=== PATIENT | female | born 1985 | race Caucasian/White ===

== ENCOUNTER → 2018-05-16 | Outpatient (CLI) | payer MEDICAID ==
[~2018-05-16] MED LIST: CEPH500C PO
--- NOTE | 2018-05-16 12:29 | Diagnostic Imaging Report ---
INDICATION: survey. TECHNIQUE: Multiple Real-time grayscale images were obtained over the gravid uterus. COMPARISON: None. FINDINGS: There is a single live fetus in a cephalic presentation. The heart rate was recorded at 149 BPM. The placenta is anterior. The amniotic fluid volume is normal. The survey is somewhat limited due to patient body habitus. The bladder and stomach are unremarkable. There is a three-vessel cord with normal insertion. The kidneys are somewhat limited in evaluation. In addition, the brain, spine, and 4 chamber heart view are limited. The cervical length is approximately 4 cm. Biometrical measurements are as follows: Biparietal 4.98 cm, age 21 weeks 1 days. Head circumference 19.34 cm, age 21 weeks 5 days. Abdominal circumference 17.42 cm, age 22 weeks 3 days. Femur length 3.41 cm, age 20 weeks 6 days. Sonographic estimate age: 21 weeks 4 days. Sonographic estimated date of delivery: 09/22/18. Estimated Weight: 436 gm (+/- 64 gm). LMP percentile: 76%. heart rate: 149 beats per minute. number: 1 of 1. IMPRESSION: Single live IUP of 21 weeks 4 days gestational age. The estimated date of confinement sonographically is 09/22/2018. The survey is limited. Followup could be performed. Dictated by: Dictated on workstation # [id number]
== END ==
LOC: RAD 10:39
PROVIDERS: ATTEND Obstetrics & Gynecology
DX: Z36.89 Encounter for other specified antenatal screening (principal); Z3A.21 21 weeks gestation of pregnancy
CPT/HCPCS: 76805

== ENCOUNTER → 2018-07-09 | Outpatient (CLI) | payer MEDICAID ==
--- NOTE | 2018-07-09 11:04 | Diagnostic Imaging Report ---
INDICATION: Followup incomplete anatomical assessment from prior imaging. TECHNIQUE: Multiple, limited real-time grayscale images were obtained over the gravid uterus. COMPARISON: 05/16/2018 FINDINGS: Single viable intrauterine currently in cephalic presentation. Placenta anterior without evidence for previa. Normal amount of amniotic fluid appears to be present. Followup limited anatomical evaluation demonstrates visualization of the spine, four-chamber heart and kidneys to be unremarkable. The intracranial structures however remain incomplete and limited in evaluation. Maternal adnexa not imaged. Biometrical growth parameters not performed. heart rate: 132 beats per minute. number: One of one. IMPRESSION: 1. Limited followup obstetrical sonogram imaging demonstrates visualization of the spine, four-chamber heart and kidneys. However, the intracranial structures remain incomplete and limited in evaluation. Dictated by: Dictated on workstation # [id number]
== END ==
LOC: RAD 09:52
PROVIDERS: ATTEND Obstetrics & Gynecology
DX: Z36.89 Encounter for other specified antenatal screening (principal); Z3A.00 Weeks of gestation of pregnancy not specified
CPT/HCPCS: 76816

== ENCOUNTER 2018-09-01 05:54 | Inpatient (IN) | payer MEDICAID ==
[2018-09-01] VITALS (53 sets, daily range): BP systolic 98–134; BP diastolic 55–93
[~2018-09-01] VITALS: Ht 160 cm; Wt 120.7 kg
--- NOTE | 2018-09-01 05:55 | NUR ---
JUANITA PONCE presented to unit via wc from ED, accompanied by er staff and son , with c/o POSS WATER BROKE, ALEXIRACTIONS. JUANITA PONCE weighed, gowned, voided, and to bed. EFHM and TOCO applied, VS taken. JUANITA PONCE oriented to bed controls, call light, TV, heat, and A/C controls. Assessments per H.ROCAEL KEEN.
[2018-09-01] MEDS ORDERED: AMPICILLIN FOR IV USE 2,000 MG VIAL ONE (06:10)
[2018-09-01] MEDS ORDERED: D5 LR IV SOLUTION 1,000 ML IV ONE (06:11)
[2018-09-01] MEDS ORDERED: AMPICILLIN FOR IV USE 2,000 MG in WATER (STERILE) FOR INJECTION 14.8 ML IV SCH (06:20)
[2018-09-01] MEDS: D5 LR IV SOLUTION 1,000 ML IV SCH ×2 (06:20→14:43)
--- OUTSIDE RECORDS SUMMARY | 2018-09-01 06:31 | XMS REPORT | Continuity of Care Document ---
Author Author [facility] Organization [facility] Address Unknown Phone Unavailable Allergies Active Description Code Type Severity Reaction Onset Reported/Identified Relationship to Patient Clinical Status Yes No Known Drug Allergies [id number] Drug Allergy Unknown N/A 08/02/2014 Medications There is no data. Problems Date Dx Coded Attending Type Code Diagnosis Diagnosed By 08/02/2014 MIRIAM PAZ APRN Ot 882.1 OPN WOUND HAND-COMPLICAT 08/02/2014 MIRIAM PAZ APRN Ot E000.8 OTHER EXTERNAL CAUSE STATUS 08/02/2014 MIRIAM PAZ APRN Ot E920.8 ACC-CUTTING INSTRUM NEC 03/07/2016 LAVERN CORRIGAN, ABDULKADIR Garces Ot F17.210 NICOTINE DEPENDENCE, CIGARETTES, UNCOMPL 03/07/2016 LAVERN CORRIGAN, ABDULKADIR Garces Ot O03.9 COMPLETE OR UNSP SPONTANEOUS WI 03/07/2016 ABDULKADIR PUCKETT MD Ot O20.0 THREATENED 03/07/2016 LAVERN CORRIGAN, ABDULKADIR Garces Ot O36.0910 MATERNAL CARE FOR OTH RHESUS ISOIMMUN, F 03/07/2016 ABDULKADIR PUCKETT MD Ot Z3A.01 LESS THAN 8 WEEKS GESTATION OF 03/08/2016 ABDULKADIR PUCKETT MD Ot F17.210 NICOTINE DEPENDENCE, CIGARETTES, UNCOMPL 03/08/2016 ABDULKADIR PUCKETT MD Ot O03.9 COMPLETE OR UNSP SPONTANEOUS WI 03/08/2016 ABDULKADIR PUCKETT MD Ot O20.0 THREATENED 03/08/2016 ABDULKADIR PUCKETT MD Ot O36.0910 MATERNAL CARE FOR OTH RHESUS ISOIMMUN, F 03/08/2016 ABDULKADIR PUCKETT MD Ot Z3A.01 LESS THAN 8 WEEKS GESTATION OF 05/17/2018 NERI STACK DO Ot Z36.89 ENCOUNTER FOR OTHER SPECIFIED 05/17/2018 NERI STACK DO Ot Z3A.21 21 WEEKS GESTATION OF 07/11/2018 NERI STACK DO Ot Z36.89 ENCOUNTER FOR OTHER SPECIFIED 07/11/2018 NERI STACK DO Ot Z3A.00 WEEKS OF GESTATION OF NOT SPEC 07/25/2018 NERI STACK DO Ot Z36.89 ENCOUNTER FOR OTHER SPECIFIED 07/25/2018 STACK DONERI Ot Z3A.00 WEEKS OF GESTATION OF NOT SPEC 09/01/2018 SREEKANTH DONERI Ot Z36.89 ENCOUNTER FOR OTHER SPECIFIED 09/01/2018 SREEKANTH DONERI Ot Z3A.00 WEEKS OF GESTATION OF NOT SPEC Procedures There is no data. Results Test Result Range Complete urinalysis with reflex to culture - 03/07/16 14:38 Urine color determination YELLOW NRG Urine clarity determination CLEAR NRG Urine pH measurement by test strip 5 5-9 Specific gravity of urine by test strip 1.010 1.016- 1.022 Urine protein assay by test strip, semi-quantitative NEGATIVE NEGATIVE Urine glucose detection by automated test strip NEGATIVE NEGATIVE Erythrocytes detection in urine sediment by light microscopy 3+ NEGATIVE Urine ketones detection by automated test strip NEGATIVE NEGATIVE Urine nitrite detection by test strip NEGATIVE NEGATIVE Urine total bilirubin detection by test strip NEGATIVE NEGATIVE Urine urobilinogen measurement by automated test strip (mass/volume) NORMAL NORMAL Urine leukocyte esterase detection by dipstick NEGATIVE NEGATIVE Automated urine sediment erythrocyte count by microscopy (number/high power field) [HPF] NRG Automated urine sediment leukocyte count by microscopy (number/high power field ) NONE NRG Bacteria detection in urine sediment by light microscopy NEGATIVE NRG Squamous epithelial cells detection in urine sediment by light microscopy 2-5 NRG Crystals detection in urine sediment by light microscopy NONE NRG Casts detection in urine sediment by light microscopy NONE NRG Mucus detection in urine sediment by light microscopy NEGATIVE NRG Complete urinalysis with reflex to culture NO NRG Complete blood count (CBC) with automated white blood cell (WBC) differential - 03/07/16 15:06 Blood leukocytes automated count (number/volume) 6.8 10*3/uL 4.3-11.0 Blood erythrocytes automated count (number/volume) 5.10 10*6/uL 4.35-5.85 Venous blood hemoglobin measurement (mass/volume) 14.5 g/dL 11.5-16.0 Blood hematocrit (volume fraction) 44 % 35-52 Automated erythrocyte mean corpuscular volume 86 [foz_us] 80-99 Automated erythrocyte mean corpuscular hemoglobin (mass per erythrocyte) 28 pg 25-34 Automated erythrocyte mean corpuscular hemoglobin concentration measurement ( mass/volume) 33 g/dL 32-36 Automated erythrocyte distribution width ratio 13.5 % 10.0-14.5 Automated blood platelet count (count/volume) 250 10*3/uL 130-400 Automated blood platelet mean volume measurement 10.0 [foz_us] 7.4-10.4 Automated blood neutrophils/100 leukocytes 60 % 42-75 Automated blood lymphocytes/100 leukocytes 30 % 12-44 Blood monocytes/100 leukocytes 7 % 0-12 Automated blood eosinophils/100 leukocytes 2 % 0-10 Automated blood basophils/100 leukocytes 1 % 0-10 Blood neutrophils automated count (number/volume) 4.1 10*3 1.8-7.8 Blood lymphocytes automated count (number/volume) 2.0 10*3 1.0-4.0 Blood monocytes automated count (number/volume) 0.5 10*3 0.0-1.0 Automated eosinophil count 0.2 10*3/uL 0.0-0.3 Automated blood basophil count (count/volume) 0.1 10*3/uL 0.0-0.1 [facility] - 03/07/16 15:06 RH IMMUNE GLOBULIN [facility] PRSMD TRFSD 03/07/16 1805 NRG ABO+Rh group - 03/07/16 15:06 ABO+Rh group ON NRG [id number] - 03/07/16 15:06 [id number] 300ug NRG Lot number - 03/07/16 15:06 Lot number [id number] NRG cell screen - 03/07/16 15:06 cell screen 04/07/18 NRG Serum or plasma choriogonadotropin measurement (units/volume) - 03/07/16 15:06 Serum or plasma choriogonadotropin measurement (units/volume) 271 m[ iU]/mL <5 Encounters ACCT No. Visit Date/Time Discharge Status Pt. Type Provider Facility Loc./Unit Complaint [id number] 07/09/2018 09:52:00 07/09/2018 23:59:59 CLS Outpatient NERI STACK DO [facility] RAD EVALUATE ANATOMY NOT SEEN PRIOR [id number] 05/16/2018 10:39:00 05/16/2018 23:59:59 CLS Outpatient NERI STACK DO [facility] RAD 15 WEEKS GESTATION OF [id number] 03/07/2016 13:34:00 03/07/2016 18:17:00 DIS Emergency ABDULKADIR PUCKETT MD [facility] ER POSITIVE PREG TEST/ VAG BLEEDING [id number] 08/02/2014 17:13:00 08/02/2014 17:33:00 DIS Emergency MIRIAM PAZ APRN [facility] ER HOOK IN RIGHT HAND [id number] 09/01/2018 05:54:00 ACT Outpatient NERI STACK DO [facility] LDRP JORGE CONROY [id number] 08/02/2014 21:13:53 ACT Document Registration
--- OUTSIDE RECORDS SUMMARY | 2018-09-01 06:31 | XMS REPORT ---
Author JAREN [facility] eClinicalWorks Address Unknown Phone Unavailable Care Team Providers Care Freelance Photographer Name Role Phone JAREN COTTRELL CP Unavailable Allergies No Known Allergies Problems Problem Type Condition Code Onset Dates Condition Status Assessment Encounter for test, result unknown Z32.00 Active Medications No Known Medications Procedures Procedure Coding System Code Date VENIPUNCT, ROUTINE* CPT-4 60687 Mar 04, 2016 CHORIONIC GONADOTROPIN ASSAY CPT-4 34737 Mar 04, 2016 Results No Known Results Summary Purpose eClinicalWorks Submission
[2018-09-01 06:33] LABS: BASOPHILS % (AUTO) 0 % (0-10); EOSINOPHILS # (AUTO) 0.1 10^3/uL (0.0-0.3); EOSINOPHILS % (AUTO) 1 % (0-10); HEMATOCRIT 39 % (35-52); HEMOGLOBIN 13.2 G/DL (11.5-16.0); LYMPHOCYTES # (AUTO) 2.6 X 10^3 (1.0-4.0); LYMPHOCYTES % (AUTO) 23 % (12-44); MEAN CORPUSCULAR HEMOGLOBIN 29 PG (25-34); MEAN CORPUSCULAR HGB CONC 34 G/DL (32-36); MEAN CORPUSCULAR VOLUME 86 FL (80-99); MEAN PLATELET VOLUME 10.8 FL (7.4-10.4); MONOCYTES # (AUTO) 0.7 X 10^3 (0.0-1.0); MONOCYTES % (AUTO) 6 % (0-12); NEUTROPHILS # (AUTO) 7.8 X 10^3 (1.8-7.8); NEUTROPHILS % (AUTO) 70 % (42-75); PLATELET COUNT 258 10^3/uL (130-400); RED CELL DISTRIBUTION WIDTH 14.1 % (10.0-14.5); WHITE BLOOD COUNT 11.2 10^3/uL (4.3-11.0)
[2018-09-01] MEDS ORDERED: PREN-53 PO (06:38)
--- NOTE | 2018-09-01 08:03 | History & Physical-OB ---
OB - Chief Complaint & HPI Date/Time Date of Admission: Date of Admission: Sep 01, 2018 at 06:13 Date seen by a Provider: Sep 01, 2018 Time Seen by a Provider: 07:45 Chief Complaint/History OB-Reason for Admission/Chief: Labor Hx : 3 Hx Para: 1 Expected Date of Delivery: Sep 26, 2018 Gestational Age in Weeks: 36 Gestational Age in Days: 3 Admission Nurse Assessment Rev: Yes History of Labs O neg Antibody neg RNI RPR NR HBsAg NR HIV NR GC neg GBS unknown(pending) Allergies and Home Medications Allergies Coded Allergies: No Known Drug Allergies (Unverified , 08/02/14) Home Medications Nij224/Iron Fumarate/FA/Dss 1 Each Tablet, 1 EACH PO DAILY, (Reported) Patient Home Medication List Home Medication List Reviewed: Yes OB - History Hx of Present Care: Yes Ultrasounds: Normal mid trimester US Obstetrical Complications: None Medical Complications: None Delivery History Hx Blood Disorders: No Adverse Rxn to Tranfusion: No Patient Past Medical History BMI > 45 Social History/Family History Alcohol Use: Denies Use Recreational Drug Use: No Immunizations Hepatitis A: Yes Hepatitis B: Yes Date of Influenza Vaccine: Apr 01, 2019 OB - Admission Exam Physical Exam Vitals: Vital Signs 09/01/18 07:00 Temp 98.5 Pulse 73 Resp 18 B/P (MAP) 125/61 (82) O2 Delivery Room Air HEENT: NCAT Heart: Rhythm Normal Lungs: Clear Abdomen: Gravid Extremities: Normal Reflexes: Normal Cervical Dilatation: 4cm Effacement: 75% Station: 0 Membranes: Ruptured Amniotic Fluid: Clear Heart Rate: 130's Accelerations: Accelerations Present Decelerations: No Decelerations Short Term Variability: Present Senior Care Variability: Average (6-25) Contractions on Admission: 6-10 Minutes Apart Intensity: Mild Labs Laboratory Tests Test 09/01/18 06:25 Range/Units White Blood Count 11.2 H 4.3-11.0 10^3/uL Red Blood Count 4.55 4.35-5.85 10^6/uL Hemoglobin 13.2 11.5-16.0 G/DL Hematocrit 39 35-52 % Mean Corpuscular Volume 86 80-99 FL Mean Corpuscular Hemoglobin 29 25-34 PG Mean Corpuscular Hemoglobin Concent 34 32-36 G/DL Red Cell Distribution Width 14.1 10.0-14.5 % Platelet Count 258 130-400 10^3/uL Mean Platelet Volume 10.8 H 7.4-10.4 FL Neutrophils (%) (Auto) 70 42-75 % Lymphocytes (%) (Auto) 23 12-44 % Monocytes (%) (Auto) 6 0-12 % Eosinophils (%) (Auto) 1 0-10 % Basophils (%) (Auto) 0 0-10 % Neutrophils # (Auto) 7.8 1.8-7.8 X 10^3 Lymphocytes # (Auto) 2.6 1.0-4.0 X 10^3 Monocytes # (Auto) 0.7 0.0-1.0 X 10^3 Eosinophils # (Auto) 0.1 0.0-0.3 10^3/uL Basophils # (Auto) 0.0 0.0-0.1 10^3/uL OB - Assessment/Plan/Diagnosis Assessment Assessment: labor Admission Dx 32 yo @ 36 weeks labor SROM GBS unknown BMI > 45 Admission Status: Inpatient Order (span 2 midnights) Reason for Inpatient Admission: labor at 36 weeks SROM Plan Plan: Expectant Management FENG CORONA DO Sep 01, 2018 08:03
[2018-09-01] MEDS ORDERED: OXYTOCIN/NORMAL SALINE 500 ML IV SCH ×2 (08:31→16:32)
[2018-09-01] MEDS ORDERED: SUFENTA 0.6MCG/ML BUPIVA 0.125 100 ML ONE (10:01)
[2018-09-01] MEDS ORDERED: fentaNYL INJECTION 100 MCG/2 ML AMP ONE (10:08)
[2018-09-01] MEDS ORDERED: LACTATED RINGERS 1,000 ML IV ONE (10:42)
[2018-09-01] MEDS ORDERED: NALOXONE 0.4 MG/ML 1 ML (NARCAN) VIAL IV PRN ×2 (10:45)
[2018-09-01] MEDS ORDERED: diphenhydrAMINE 50 MG/ML INJ (BENADRYL) IV PRN (10:45)
[2018-09-01] MEDS ORDERED: ONDANSETRON 4 MG/2 ML (SDV) Z0FRAN IV PRN (10:45)
[2018-09-01] MEDS ORDERED: EPIDURAL (SUFENTA 0.6MCG/ML BUPIVA 0.125%) 100 ML BAG EPI PRN (10:45)
[2018-09-01] MEDS ORDERED: METOCLOPRAMIDE INJ 10 MG/2 ML (REGLAN) IV PRN (10:45)
[2018-09-01] MEDS: AMPICILLIN FOR IV USE 1,000 MG in WATER (STERILE) FOR INJECTION 7.4 ML IV SCH ×2 (10:45→14:38)
[2018-09-01] MEDS ORDERED: CATHETER FLUSH 10 ML SYR IV SCH ×2 (14:00→22:00)
--- NOTE | 2018-09-01 16:05 | NUR ---
repair of midline episiotomy and periurethral extension started per dr barrow at this time 1617 spontaneous vaginal delivery of placenta with cord. fundal massage by dr barrow with lt-mod rubra noted. this rn fundal massage ffu/0 with lt rubra. no clots expressed. 1620 pericare pad under pt. pt assisted to sf position at this time. plan of care reviewed with pt and family at bedside. vss 1635 vss. ffu/0 with lt rubra noted. 1650vss ffu/0 with lt rubra noted, no clots expressed. 1705 vss ffu/0 with lt-mod rubra noted, no clots expressed. 1720 vss ffu/0 with lt-mod rubra noted, no clots expressed. plan of care reviewed with pt. pt reports legs still feel heavy. rn informed pt when able to move legs better then will transfer via wheelchair to pp room. pt verbalized understanding. continues holding infant skin to skin Addendum: 09/01/18 at 1756 by CIERRA ROBERTS RN 1623 epidural infusion off and epidural catheter out with tip intact
--- NOTE | 2018-09-01 16:40 | OB Labor & Delivery Record ---
L&D History Date of Service Date of Service: Sep 01, 2018 History Expected Date of Delivery: Sep 26, 2018 Gestational Age in Weeks: 36 Hx : 3 Hx Para: 1 Complications Events: Routine care Operative Indications (Cesarea: N/A-Vaginal Delivery Intrapartal Events: None L&D Stage1 Stage One Onset of Labor - Date: Sep 01, 2018 Monitors and Tracing Monitor Mode: Internal Heart Rate: 120 Monitor Accelerations: Uniform Monitor Decelerations: Variable Station: 0 Alf Variability: Average (6-10) Short Term Variability: Present Presentation: Vertex Vital Signs VS - Last 72 Hours, by Label 09/01/18 09/01/18 09/01/18 09/01/18 07:00 08:00 08:30 08:45 Temp 98.5 97.1 Pulse 73 66 Resp 18 18 B/P (MAP) 125/61 (82) 127/61 (83) O2 Delivery Room Air Room Air Room Air Room Air 09/01/18 09/01/18 09/01/18 09/01/18 09:00 09:15 09:30 09:45 B/P (MAP) O2 Delivery Room Air Room Air Room Air Room Air 09/01/18 09/01/18 09/01/18 09/01/18 09:45 10:00 10:15 10:25 Temp 97.9 Pulse 60 64 70 76 Resp 18 18 18 18 B/P (MAP) 117/68 (84) 114/69 (84) 133/60 (84) 134/64 (87) Pulse Ox 100 O2 Delivery Room Air Room Air Room Air Room Air 09/01/18 09/01/18 09/01/18 09/01/18 10:30 10:35 10:40 10:45 Pulse 84 76 78 70 Resp 18 18 18 18 B/P (MAP) 129/68 (88) 122/67 (85) 118/70 (86) 119/64 (82) Pulse Ox 100 100 100 99 O2 Delivery Room Air Room Air Room Air Room Air 09/01/18 09/01/18 09/01/18 09/01/18 10:50 10:55 11:00 11:05 Pulse 73 71 67 72 Resp 18 18 18 18 B/P (MAP) 124/60 (81) 130/70 (90) 132/67 (88) 129/66 (87) Pulse Ox 100 98 98 98 O2 Delivery Room Air Room Air Room Air Room Air 09/01/18 09/01/18 09/01/18 09/01/18 11:10 11:15 11:20 11:25 Pulse 72 68 70 70 Resp 18 18 18 18 B/P (MAP) 120/65 (83) 129/68 (88) 122/73 (89) 119/68 (85) Pulse Ox 98 98 98 99 O2 Delivery Room Air Room Air Room Air Room Air 09/01/18 09/01/18 09/01/18 09/01/18 11:30 11:35 11:40 11:45 Pulse 74 74 67 74 Resp 18 18 18 18 B/P (MAP) 128/83 (98) 128/83 (98) 132/60 (84) 117/57 (77) Pulse Ox 99 99 99 99 O2 Delivery Room Air Room Air Room Air Room Air 09/01/18 09/01/18 09/01/18 09/01/18 11:50 11:55 12:00 12:05 Pulse 68 69 62 61 Resp 18 18 18 18 B/P (MAP) 122/60 (80) 131/59 (83) 115/56 (75) 115/56 (75) Pulse Ox 99 99 99 98 O2 Delivery Room Air Room Air Room Air Room Air 09/01/18 09/01/18 09/01/18 09/01/18 12:10 12:15 12:30 12:45 Pulse 64 69 62 65 Resp 18 18 18 18 B/P (MAP) 110/58 (75) 108/57 (74) 118/61 (80) 124/59 (80) Pulse Ox 98 97 97 98 O2 Delivery Room Air Room Air Room Air Room Air 09/01/18 09/01/18 09/01/18 09/01/18 12:50 13:00 13:15 13:30 Temp 98.2 Pulse 65 61 61 Resp 18 18 18 B/P (MAP) 119/59 (79) 115/61 (79) 118/60 (79) Pulse Ox 99 O2 Delivery Room Air Room Air Room Air Room Air 09/01/18 09/01/18 13:45 14:00 Pulse 63 61 Resp 18 18 B/P (MAP) 108/57 (74) 112/68 (83) O2 Delivery Room Air Room Air Rupture of Membranes Spontaneous Ruture of Membrane: No Amniotic Membrane Rupture Time: 0400 Amniotic Membrane Fluid Desc.: Clear Amniotic Fluid Membrane Tests: Nitrazine Positive Induction/Anesthesia Epidural Cath Placement - Time: 1037 Progress/Notes Patient presented with SROM at 4 cm, and was augmented with Pitocin to achieve an adequate contraction pattern. She received an epidural and progressed to complete and +1 station, at that time she was noted to have an episode of tachysystotle, pitocin was turned off and O2 was administered during 2nd stage of labor as the patient was encouraged to push L&D Stage2 Stage Two Stage II Date: Sep 01, 2018 Monitors and Tracing Monitor Mode: Internal Heart Rate: 120 Monitor Decelerations: Variable Alf Variability: Minimal (3-5) Short Term Variability: Present Position: Right Occiput Anterior Presentation: Vertex Cord Descript/Complications Cord Vessel Description: 3 Vessels Delivery Type Delivery Method: Spontaneous Vaginal Anterior Shoulder: Right Episiotomy/Perineal Laceration Laceraction(s)/Extensions: Yes Episiotomy Description: Midline Sutures Used: Vicryl Degree (describe repair) right periurethral and mid line episiotomy repaired using 3-0 and 2-0 vicryl suture in usual fashion Condition of Infant Delivery 1 minute Comment: 8 5 minute Comment: 9 Notes live female infant weight 8lbs 3 oz Condition of Infant Condition of : Living Exam: No Observed Abnormalities Resuscitation Resuscitation: N/A - Spontaneous Resp L&D Stage3 Stage Three Stage III Date: Sep 01, 2018 Pictocin Pitocin Administration mu/min: 6 Pitocin ml/hr: 6 Pitocin Administration Comment: 30 mu wide open at delivery of placenta Placenta Delivery Placenta Delivery: Spontaneous Delivery Summary Summary Estimated blood loss (mL): 350 Attending at delivery: Feng Corona DO Condition of Delivery Examined: Cervix Examined, Uterus Explored Post Hemorrhage: Yes Condition of Mother stable Condition of Infant (s) stable FENG CORONA DO Sep 01, 2018 16:40
[2018-09-01] MEDS ORDERED: BENZOCAINE/MENTHOL (DERMOPLAST) 56 ML CAN TP PRN (16:45)
[2018-09-01] MEDS ORDERED: MEASLES,MUMPS,RUBELLA 1 EA INJ SQ ONE (16:45)
[2018-09-01] MEDS ORDERED: WITCH HAZEL(TUCKS) 40 EA JAR TOP PRN (16:45)
[2018-09-01] MEDS ORDERED: DIBUCAINE (NUPERCAINAL) 1% OINT 30 GM TOP PRN (16:45)
[2018-09-01] MEDS ORDERED: HYDROcodone/APAP 5 MG/325 MG (LORTAB) TAB PO PRN (16:45)
[2018-09-01] MEDS ORDERED: TETANUS,DIPTH,PERTUSS P/F (BOOSTRIX) 0.5 ML VIAL IM ONE (16:45)
[2018-09-01] MEDS ORDERED: IBUPROFEN 600 MG (MOTRIN) TAB PO ONE (17:04)
[2018-09-01] MEDS: IBUPROFEN 600 MG (MOTRIN) TAB PO SCH ×2 (17:13→23:32)
--- NOTE | 2018-09-01 18:23 | NUR ---
Pt at this time. will call rn when finished to be transferred to pp room.
--- NOTE | 2018-09-01 18:45 | NUR ---
pericare, pad changed. underwear on. gown on. ffu/0 with lt-mod rubra noted. Assisted to wheelchair and transferred to room 309. Oriented to room, call light and surroundings. Bed controls explained. info packet discussed.
[2018-09-01] MEDS ORDERED: DOCUSATE SODIUM 100 MG (COLACE) CAP PO ONE (20:06)
--- NOTE | 2018-09-01 20:30 | NUR ---
pt has the urge to void, pt unable to stand due to weakness in left leg. pt placed on bed khoury. positive void. pericare completed. assessment completed. pt denies any needs at this time. mother at bedside.
[2018-09-01] MEDS: DOCUSATE SODIUM 100 MG (COLACE) CAP PO SCH (20:49)
--- NOTE | 2018-09-01 23:00 | NUR ---
pt assisted to bathroom. positive void. pericare completed.
[2018-09-02 03:30] VITALS: BP 91/50
[2018-09-02] MEDS: IBUPROFEN 600 MG (MOTRIN) TAB PO SCH ×3 (05:40→21:11)
[2018-09-02 07:12] LABS: BASOPHILS % (AUTO) 0 % (0-10); EOSINOPHILS # (AUTO) 0.1 10^3/uL (0.0-0.3); EOSINOPHILS % (AUTO) 1 % (0-10); HEMATOCRIT 35 % (35-52); HEMOGLOBIN 11.7 G/DL (11.5-16.0); LYMPHOCYTES # (AUTO) 2.3 X 10^3 (1.0-4.0); LYMPHOCYTES % (AUTO) 21 % (12-44); MEAN CORPUSCULAR HEMOGLOBIN 29 PG (25-34); MEAN CORPUSCULAR HGB CONC 33 G/DL (32-36); MEAN CORPUSCULAR VOLUME 88 FL (80-99); MEAN PLATELET VOLUME 10.9 FL (7.4-10.4); MONOCYTES # (AUTO) 0.6 X 10^3 (0.0-1.0); MONOCYTES % (AUTO) 5 % (0-12); NEUTROPHILS % (AUTO) 72 % (42-75); PLATELET COUNT 208 10^3/uL (130-400); RED CELL DISTRIBUTION WIDTH 14.3 % (10.0-14.5)
--- NOTE | 2018-09-02 09:04 | Anesthesia-Regional Post-Op ---
Regional Patient Condition Mental Status: Alert, Oriented x3 Circulation: Same as Pre-Op Headache: Absent Sensation: Full Recovery Motor Block: Absent Post Op Complications Complications None Follow Up Care/Instructions Patient Instructions None needed. Anesthesia/Patient Condition Patient is doing well, no complaints, stable vital signs, no apparent adverse anesthesia problems. No complications reported per nursing. MITCH ARAIZA CRNA Sep 02, 2018 09:04
[2018-09-02 09:32] VITALS: BP 129/58
[2018-09-02] MEDS: FERROUS SULF 325 MG (IRON) TAB PO SCH (09:32)
[2018-09-02] MEDS: DOCUSATE SODIUM 100 MG (COLACE) CAP PO SCH ×2 (09:32→21:10)
[2018-09-02] MEDS: PRENATAL VITAMIN 1 EA TAB PO SCH (09:32)
--- NOTE | 2018-09-02 09:32 | NUR ---
initial shift assessment completed, see interventions for further. and s/o @ side. appropriate bonding noted.
--- NOTE | 2018-09-02 10:35 | Postpartum Progress Note ---
Note Note Day # 1 Subjective: Patient is without complaints. Ambulating, voiding. Tolerating a regular diet without nausea or vomiting. Normal lochia. Pain is well controlled with oral pain medications. Objective: Physical Exam: General - Alert and oriented, no apparent distress Abdomen - Soft, appropriately tender to palpation, non-distended, fundus firm at umbilicus Extremities - no edema, negative Saulo's bilaterally Assessment: PPD 1 NVD Plan: Routine care. Encourage breast feeding. Encourage ambulation. Ferrous sulfate supplementation. Plan for discharge tomorrow Vitals - Labs Vital Signs - I&O Vital Signs Date Time Temp Pulse Resp B/P (MAP) Pulse Ox O2 Delivery O2 Flow Rate FiO2 09/02/18 03:30 97.9 75 18 91/50 (64) Room Air 09/01/18 22:20 82 18 103/62 (76) Room Air 09/01/18 18:21 79 18 102/57 (72) Room Air 09/01/18 18:06 75 18 102/56 (71) Room Air 09/01/18 17:51 64 18 98/57 (71) Room Air 09/01/18 17:35 63 18 100/59 (73) Room Air 09/01/18 17:20 98.0 73 18 99/59 (72) Room Air 09/01/18 17:05 72 18 105/59 (74) Room Air 09/01/18 16:50 98.0 76 18 117/64 (81) Room Air 09/01/18 16:35 98.1 76 18 110/56 (74) Room Air 09/01/18 16:21 98.3 87 18 107/55 (72) Room Air 09/01/18 16:03 Non Rebreather 15.00 09/01/18 16:00 68 18 118/56 (76) Non Rebreather 15.00 09/01/18 15:45 70 18 125/67 (86) Non Rebreather 15.00 09/01/18 15:30 74 18 126/75 (92) Non Rebreather 15.00 09/01/18 15:15 97.6 60 18 121/65 (83) Non Rebreather 15.00 09/01/18 15:00 59 18 122/66 (84) Non Rebreather 15.00 09/01/18 14:45 63 18 133/93 (106) Room Air 09/01/18 14:30 63 18 133/93 (106) Room Air 09/01/18 14:15 60 18 120/66 (84) Room Air 09/01/18 14:00 61 18 112/68 (83) Room Air 09/01/18 13:45 63 18 108/57 (74) Room Air 09/01/18 13:30 61 18 118/60 (79) Room Air 09/01/18 13:15 61 18 115/61 (79) Room Air 09/01/18 13:00 Room Air 09/01/18 12:50 98.2 65 18 119/59 (79) 99 Room Air 09/01/18 12:45 65 18 124/59 (80) 98 Room Air 09/01/18 12:30 62 18 118/61 (80) 97 Room Air 09/01/18 12:15 69 18 108/57 (74) 97 Room Air 09/01/18 12:10 64 18 110/58 (75) 98 Room Air 09/01/18 12:05 61 18 115/56 (75) 98 Room Air 09/01/18 12:00 62 18 115/56 (75) 99 Room Air 09/01/18 11:55 69 18 131/59 (83) 99 Room Air 09/01/18 11:50 68 18 122/60 (80) 99 Room Air 09/01/18 11:45 74 18 117/57 (77) 99 Room Air 09/01/18 11:40 67 18 132/60 (84) 99 Room Air 09/01/18 11:35 74 18 128/83 (98) 99 Room Air 09/01/18 11:30 74 18 128/83 (98) 99 Room Air 09/01/18 11:25 70 18 119/68 (85) 99 Room Air 09/01/18 11:20 70 18 122/73 (89) 98 Room Air 09/01/18 11:15 68 18 129/68 (88) 98 Room Air 09/01/18 11:10 72 18 120/65 (83) 98 Room Air 09/01/18 11:05 72 18 129/66 (87) 98 Room Air 09/01/18 11:00 67 18 132/67 (88) 98 Room Air 09/01/18 10:55 71 18 130/70 (90) 98 Room Air 09/01/18 10:50 73 18 124/60 (81) 100 Room Air 09/01/18 10:45 70 18 119/64 (82) 99 Room Air 09/01/18 10:40 78 18 118/70 (86) 100 Room Air 09/01/18 10:35 76 18 122/67 (85) 100 Room Air I & O 09/02/18 06:59 Intake Total 2057.4 ml Output Total 450 ml Balance 1607.4 ml Labs Laboratory Tests 09/02/18 06:18: White Blood Count 11.0, Red Blood Count 3.98L, Hemoglobin 11.7, Hematocrit 35, Mean Corpuscular Volume 88, Mean Corpuscular Hemoglobin 29, Mean Corpuscular Hemoglobin Concent 33, Red Cell Distribution Width 14.3, Platelet Count 208, Mean Platelet Volume 10.9H, Neutrophils (%) (Auto) 72, Lymphocytes (%) (Auto) 21 , Monocytes (%) (Auto) 5, Eosinophils (%) (Auto) 1, Basophils (%) (Auto) 0, Neutrophils # (Auto) 8.0H, Lymphocytes # (Auto) 2.3, Monocytes # (Auto) 0.6, Eosinophils # (Auto) 0.1, Basophils # (Auto) 0.0 FENG CORONA DO Sep 02, 2018 10:34
--- NOTE | 2018-09-02 10:37 | Discharge Inst-Women's Service ---
Discharge Inst-Women's Serv Depart Medication/Instructions New, Converted or Re-Newed RX: RX on Chart Consults/Follow Up Additional Follow Up: Yes Activity Activity: Activity as Tolerated Driving Instructions: No Driving for 1 Week NO SMOKING: NO SMOKING Nothing Inside Vagina: No Douching, No Startup, No Tampons Diet Discharge Diet: No Restrictions Symptoms to Report to : Bleeding Excessive, Pain Increased, Fever Over 101 Degrees F, Vaginal Bleeding Increase, Questions/Concerns For Any Problems or Questions: Contact Your Physician FENG CORONA DO Sep 02, 2018 10:37
[2018-09-02] MEDS ORDERED: DOCU100C37 PO (10:40)
[2018-09-02] MEDS ORDERED: ACHD5005 PO (10:40)
[2018-09-02] MEDS ORDERED: IBUP-844 PO (10:40)
[2018-09-02 13:15] VITALS: BP 117/56
--- NOTE | 2018-09-02 13:15 | NUR ---
visiting with family members @ side. reports no c/o's @ time. scheduled Motrin given, see eMar for futher.
--- NOTE | 2018-09-02 19:14 | NUR ---
report given to next shift.
[2018-09-02 20:00] VITALS: BP 106/53
--- NOTE | 2018-09-02 21:00 | NUR ---
pt resting in bed. assessment completed. pt denies any needs at this time. will continue to monitor.
[2018-09-03 02:00] VITALS: BP 109/53
[2018-09-03] MEDS: IBUPROFEN 600 MG (MOTRIN) TAB PO SCH ×2 (03:28→09:04)
--- NOTE | 2018-09-03 08:04 | Postpartum Progress Note ---
Note Note Day # 2 Subjective: Patient is without complaints. Ambulating, voiding. Tolerating a regular diet without nausea or vomiting. Normal lochia. Pain is well controlled with oral pain medications. Objective: Physical Exam: General - Alert and oriented, no apparent distress Abdomen - Soft, appropriately tender to palpation, non-distended, fundus firm at umbilicus Extremities - no edema, negative Saulo's bilaterally Assessment: PPD2 NVD Plan: Routine care. Encourage breast feeding. Encourage ambulation. Ferrous sulfate supplementation. Plan for discharge today Vitals - Labs Vital Signs - I&O Vital Signs Date Time Temp Pulse Resp B/P (MAP) Pulse Ox O2 Delivery O2 Flow Rate FiO2 09/03/18 02:00 98.1 61 18 109/53 (71) 98 Room Air 09/02/18 20:00 98.2 70 18 106/53 (70) 98 Room Air 09/02/18 13:15 97.6 80 18 117/56 (76) 98 Room Air 09/02/18 09:32 98.2 77 18 129/58 (81) 96 Room Air FENG CORONA DO Sep 03, 2018 08:04
--- NOTE | 2018-09-03 08:15 | NUR ---
DR. CORONA HERE TO SEE PT.
[2018-09-03 08:30] VITALS: BP 103/63
--- NOTE | 2018-09-03 09:00 | NUR ---
A.M. ASSESSMENT COMPLETED. VSS. PLANNING TO GO HOME TODAY.
[2018-09-03] MEDS: FERROUS SULF 325 MG (IRON) TAB PO SCH (09:04)
[2018-09-03] MEDS: DOCUSATE SODIUM 100 MG (COLACE) CAP PO SCH (09:04)
[2018-09-03] MEDS: PRENATAL VITAMIN 1 EA TAB PO SCH (09:04)
--- NOTE | 2018-09-03 10:30 | NUR ---
CARING FOR INFANT IN ROOM. GOOD INTERACTION NOTED.
[2018-09-03] MEDS ORDERED: MEASLES,MUMPS,RUBELLA 1 EA INJ ONE (11:54)
--- NOTE | 2018-09-03 12:13 | NUR ---
MMR GIVEN SUBQ IN LEFT UPPER ARM. SITE CLEAR.
[2018-09-03 12:15] VITALS: BP 117/64
--- NOTE | 2018-09-03 12:50 | NUR ---
DISCHARGE INSTRUCTIONS REVIEWED WITH COPY TO PT. RXS GIVEN. STATES UNDERSTANDING OF ALL INSTRUCTIONS AND NEED TO F/U SCHEDULED AND NEEDED.
[2018-09-03 13:00] VITALS: BP 117/64
--- NOTE | 2018-09-03 13:00 | NUR ---
DISMISSED AMB FROM [facility] WITH IN STABLE CONDITION TO [facility] BY LEIDY KEEN.
== END 2018-09-03 13:00 | disposition home or self-care (01) | DRG 807 ==
LOC: WSo 05:54 → LDRP 05:55 → WSo 06:12 → LDRP 06:13
PROVIDERS: ADMIT Obstetrics & Gynecology; ATTEND Obstetrics & Gynecology
PROC: 10E0XZZ Delivery of Products of Conception, External Approach (ICD-10-PCS; principal; 2018-09-01)
PROC: 0UQMXZZ Repair Vulva, External Approach (ICD-10-PCS; 2018-09-01)
PROC: 0W8NXZZ Division of Female Perineum, External Approach (ICD-10-PCS; 2018-09-01)
DX: O60.14X0 Preterm labor third trimester with preterm delivery third trimester, not applicable or unspecified (principal); O62.9 Abnormality of forces of labor, unspecified; O71.82 Other specified trauma to perineum and vulva; O99.334 Smoking (tobacco) complicating childbirth; F17.290 Nicotine dependence, other tobacco product, uncomplicated; Z3A.36 36 weeks gestation of pregnancy; Z37.0 Single live birth; Z86.32 Personal history of gestational diabetes
CPT/HCPCS: 36415; 85025; 86850; 86900; 86901; 90707; 99212

== ENCOUNTER → 2018-10-02 | Outpatient (CLI) | payer MEDICAID ==
[~2018-10-02] MED LIST changes: +ACHD5005 PO; +DOCU100C37 PO; +IBUP-844 PO; +PREN-53 PO
--- NOTE | 2018-10-02 14:32 | Diagnostic Imaging Report ---
PROCEDURE: US Venous Lower Ext Emir. TECHNIQUE: Multiple real-time grayscale images were obtained over the lower extremities in various projections, bilaterally. Additional duplex Doppler and color Doppler images were also obtained. INDICATION: Bilateral lower extremity edema as well as pain in the right leg. FINDINGS: There is no evidence of right or left lower extremity DVT. Both lower extremity deep venous systems demonstrate normal compressibility with normal response to augmentation and Valsalva. No fluid collection or mass is seen. IMPRESSION: No evidence of right or left lower extremity DVT. Dictated by: Dictated on workstation # [id number]
== END ==
LOC: RAD 12:47
PROVIDERS: ATTEND Obstetrics & Gynecology
DX: R60.0 Localized edema (principal)
CPT/HCPCS: 93970

== ENCOUNTER → 2018-10-02 | Outpatient (CLI) | payer MEDICAID | LOC: WSo 13:00 | PROVIDERS: ATTEND Obstetrics & Gynecology | DX: M79.604 Pain in right leg (principal); R60.0 Localized edema | CPT/HCPCS: 36415; 85379 ==

== ENCOUNTER 2019-05-09 09:04 | Day surgery (SDC) | payer MEDICAID, OTHER ==
[2019-05-09] VITALS (9 sets, daily range): BP systolic 102–123; BP diastolic 52–66
[~2019-05-09] VITALS: Ht 160 cm; Wt 108.0 kg
[2019-05-09] MEDS ORDERED: LACTATED RINGERS 1,000 ML IV ONE (09:33)
[2019-05-09 09:41] LABS: CLARITY,URINE CLEAR; COLOR,URINE AMBER; GLUCOSE, URINE (UA) NEGATIVE (NEGATIVE); KETONES,URINE NEGATIVE (NEGATIVE); LEUKOCYTE ESTERASE ,URINE 1+ (NEGATIVE); NITRITE,URINE NEGATIVE (NEGATIVE); PH,URINE 6 (5-9); PROTEIN,URINE 2+ (NEGATIVE)
--- NOTE | 2019-05-09 09:41 | ED Abdominal Pain ---
General Chief Complaint: Back Problems Stated Complaint: ABD PAIN;CHEST TIGHTNESS Source of Information: Patient Exam Limitations: No Limitations History of Present Illness Date Seen by Provider: May 09, 2019 Time Seen by Provider: 09:25 Initial Comments Patient presents to ER by private conveyance with chief complaint of mid abdominal pain wrapping around to either side and into her flanks. This started Monday, 3 days ago while she would've a pumpkin patch after eating a chili dog and having 3 bouts of diarrhea. She took some ibuprofen and it went away after a while. She woke up this morning and had biscuits and gravy and then again had similar pains. She says it also feels like she has tightness in her chest and then points to her umbilicus. She has not had any abdominal surgeries. She does not history of heart disease or any coronary risk factors such as smoking, hypertension, hyperlipidemia, diabetes or familial history of early-onset cardiac disease. She does use a vaporizer. She's having nausea pain 9-10 out of 10 presently and has had diarrhea again today. She took ibuprofen 800 mg one hour prior to arrival. Allergies and Home Medications Allergies Coded Allergies: No Known Drug Allergies (Unverified , 08/02/14) Home Medications Docusate Sodium 100 Mg Capsule, 100 MG PO BID PRN for CONSTIPATION-1ST LINE Prescribed by: FENG CORONA on 09/02/18 1040 Hydrocodone Bit/Acetaminophen 1 Tab Tab, 1 TAB PO Q4H PRN for PAIN-MODERATE Prescribed by: FENG CORONA on 09/02/18 1040 Ibuprofen 600 Mg Tablet, 600 MG PO Q6H Prescribed by: FENG CORONA on 09/02/18 1040 Patient Home Medication List Home Medication List Reviewed: Yes Review of Systems Review of Systems Constitutional: No chills, No fever; malaise EENTM: No Blurred Vision, No Double Vision Respiratory: Denies Cough, Denies Orthopnea Cardiovascular: Denies Chest Pain, Denies Edema Gastrointestinal: See HPI, Abdominal Pain; Denies Constipated; Diarrhea, Nausea, Vomiting Genitourinary: Denies Burning, Denies Discharge; Other (dark urine) Musculoskeletal: No back pain, No joint pain Past Glhndfj-Zbypmg-Nexvfl Hx Patient Social History Alcohol Use: Denies Use Recreational Drug Use: No Type Used: Electronic/Vapor Recent Hopitalizations: No Immunizations Up To Date PED Vaccines UTD: No Date of Influenza Vaccine: Apr 01, 2018 Seasonal Allergies Seasonal Allergies: No Past Medical History Surgeries: Yes Tonsillectomy Respiratory: No Cardiac: No Neurological: No Reproductive Disorders: No Genitourinary: No Gastrointestinal: No Musculoskeletal: No Endocrine: No HEENT: No Cancer: No Psychosocial: No Integumentary: No Blood Disorders: No Adverse Reaction/Blood Tranf: No Family Medical History Congenital heart disease 19 FATHER FH: breast cancer 19 MOTHER FH: obesity G8 BROTHER G8 BROTHER Physical Exam Vital Signs Vital Signs - First Documented 05/09/19 09:10 Temp 36.4 Pulse 82 Resp 18 B/P (MAP) 133/77 (95) Pulse Ox 99 O2 Delivery Room Air Capillary Refill : Height/Weight/BMI Height: 5'3.00" Weight: 266lbs. 0.0oz. 120.712292cb; 47.1 BMI Method:Stated General Appearance: WD/WN, moderate distress (writhing, uncomfortable, unable to sit still) HEENT: PERRL/EOMI, normal ENT inspection; No pharynx normal (oropharynx is dry) Respiratory: no respiratory distress, no accessory muscle use Cardiovascular: normal peripheral pulses, regular rate, rhythm Gastrointestinal: normal bowel sounds, soft, no organomegaly, tenderness (right upper quadrant and epigastric); No mass; other (negative for Tucker sign, R ovsing's or rebound tenderness over McBurney's point) Extremities: non-tender, normal capillary refill Neurologic/Psychiatric: alert, normal mood/affect, oriented x 3 Skin: normal color, warm/dry Progress/Results/Core Measures Results/Orders Lab Results Laboratory Tests Test 05/09/19 09:17 05/09/19 09:34 Range/Units Urine Color SUE H Urine Clarity CLEAR Urine pH 6 5-9 Urine Specific [place] 1.015 L 1.016-1.022 Urine Protein 2+ H NEGATIVE Urine Glucose (UA) NEGATIVE NEGATIVE Urine Ketones NEGATIVE NEGATIVE Urine Nitrite NEGATIVE NEGATIVE Urine Bilirubin 1+ H NEGATIVE Urine Urobilinogen 8 H NORMAL MG/DL Urine Leukocyte Esterase 1+ H NEGATIVE Urine RBC (Auto) NEGATIVE NEGATIVE Urine RBC NONE /HPF Urine WBC 0-2 /HPF Urine Squamous Epithelial Cells 10-25 H /HPF Urine Crystals NONE /LPF Urine Bacteria TRACE /HPF Urine Casts NONE /LPF Urine Mucus SMALL H /LPF Urine Culture Indicated NO Urine Test NEGATIVE NEGATIVE White Blood Count 11.1 H 4.3-11.0 10^3/uL Red Blood Count 5.25 4.35-5.85 10^6/uL Hemoglobin 14.8 11.5-16.0 G/DL Hematocrit 45 35-52 % Mean Corpuscular Volume 86 80-99 FL Mean Corpuscular Hemoglobin 28 25-34 PG Mean Corpuscular Hemoglobin Concent 33 32-36 G/DL Red Cell Distribution Width 13.6 10.0-14.5 % Platelet Count 268 130-400 10^3/uL Mean Platelet Volume 10.7 H 7.4-10.4 FL Neutrophils (%) (Auto) 73 42-75 % Lymphocytes (%) (Auto) 20 12-44 % Monocytes (%) (Auto) 5 0-12 % Eosinophils (%) (Auto) 2 0-10 % Basophils (%) (Auto) 0 0-10 % Neutrophils # (Auto) 8.1 H 1.8-7.8 X 10^3 Lymphocytes # (Auto) 2.2 1.0-4.0 X 10^3 Monocytes # (Auto) 0.6 0.0-1.0 X 10^3 Eosinophils # (Auto) 0.3 0.0-0.3 10^3/uL Basophils # (Auto) 0.0 0.0-0.1 10^3/uL Sodium Level 143 135-145 MMOL/L Potassium Level 3.4 L 3.6-5.0 MMOL/L Chloride Level 105 98-107 MMOL/L Carbon Dioxide Level 24 21-32 MMOL/L Anion Gap 14 5-14 MMOL/L Blood Urea Nitrogen 9 7-18 MG/DL Creatinine 0.82 0.60-1.30 MG/DL Estimat Glomerular Filtration Rate > 60 BUN/Creatinine Ratio 11 Glucose Level 128 H 70-105 MG/DL Calcium Level 9.1 8.5-10.1 MG/DL Corrected Calcium 9.0 8.5-10.1 MG/DL Total Bilirubin 1.7 H 0.1-1.0 MG/DL Aspartate Amino Transf (AST/SGOT) 93 H 5-34 U/L Alanine Aminotransferase (ALT/SGPT) 197 H 0-55 U/L Alkaline Phosphatase 211 H 40-136 U/L Troponin I < 0.028 <0.028 NG/ML Total Protein 7.2 6.4-8.2 GM/DL Albumin 4.1 3.2-4.5 GM/DL Lipase 33 8-78 U/L My Orders Orders - DEBO SCOTT Ua Culture If Indicated (05/09/19 09:33) Hcg,Qualitative Urine (05/09/19 09:33) Cbc With Automated Diff (05/09/19 09:33) Comprehensive Metabolic Panel (05/09/19:33) Lipase (05/09/19 09:33) Troponin I (05/09/19:33) Continuous Ekg Monitoring (05/09/19:33) Ekg Tracing (05/09/19:33) Fentanyl Injection (Sublimaze Injection (05/09/19 09:45) Ondansetron Injection (Zofran Injectio (05/09/19 09:45) Ed Iv/Invasive Line Start (05/09/19 09:33) Lactated Ringers (Lr 1000 Ml Iv Solution (05/09/19 09:33) Ct Abdomen/Pelvis W (05/09/19 09:45) Chest 1 View, Ap/Pa Only (05/09/19 09:45) Iohexol Injection (Omnipaque 350 Mg/Ml 1 (05/09/19 10:30) Received Contrast (Hold Metformin- Contr (05/09/19 10:30) Sodium Chloride Flush (Catheter Flush Sy (05/09/19 10:30) Ns (Ivpb) (Sodium Chloride 0.9% Ivpb Bag (05/09/19 10:30) Medications Given in ED Current Medications Medications Dose Ordered Sig/Quin Route Start Time Stop Time Status Last Admin Dose Admin Fentanyl Citrate 50 mcg ONCE ONCE IVP 05/09/19 09:45 05/09/19 09:46 DC 05/09/19 09:43 50 MCG Iohexol 100 ml ONCE ONCE IV 05/09/19 10:30 05/09/19 10:31 DC 05/09/19 10:53 100 ML Lactated Ringer's 1,000 ml @ 0 mls/hr Q0M ONCE IV 05/09/19 09:33 05/09/19 09:36 DC 05/09/19 09:43 1,000 MLS/HR Ondansetron HCl 8 mg ONCE ONCE IVP 05/09/19 09:45 05/09/19 09:46 DC 05/09/19 09:42 8 MG Sodium Chloride 10 ml NEEDED PRN IV 05/09/19 10:30 05/09/19 10:53 10 ML Sodium Chloride 100 ml ONCE ONCE IV 05/09/19 10:30 05/09/19 10:31 DC 05/09/19 10:53 80 ML Vital Signs/I&O 05/09/19 09:10 Temp 36.4 Pulse 82 Resp 18 B/P (MAP) 133/77 (95) Pulse Ox 99 O2 Delivery Room Air Progress Progress Note : Time: 09:43 Progress Note Plan to obtain imaging of her abdomen/pelvis. Fentanyl, Zofran, fluids and labs. Suspect gallbladder versus kidney stone versus gastritis/pancreatitis. We will obtain a chest x-ray/EKG/troponin since she is complaining of chest tightness although she does not indicate her chest and it is nontender to palpation. Initial ECG Impression Date: May 09, 2019 Initial ECG Impression Time: 09:40 Initial ECG Rate: 69 Initial ECG Rhythm: Normal Sinus Initial ECG Intervals: Normal Initial ECG Impression: Normal Comment Sinus rhythm without ST elevation or depression. Diagnostic Imaging Diagonstic Imaging: Xray Plain Films/CT/US/NM/MRI: chest (1v) Comments NAME: JUANITA PONCE [facility] REC#: [id number] PT STATUS: REG ER : 1985 PHYSICIAN: DEBO SCOTT MD ADMIT DATE: 05/09/19/ER Draft Date of Exam:05/09/19 CHEST 1 VIEW, AP/PA ONLY INDICATION: Abdominal pain and chest tightness. TIME OF EXAM: 10:32 AM No prior studies are available for comparison. FINDINGS: The heart size is normal. The pulmonary vascularity is unremarkable. The lungs are clear. No infiltrate, effusion or pneumothorax is detected. IMPRESSION: No acute cardiopulmonary process is detected. Dictated on workstation # [id number] Dict: 05/09/19 1046 Trans: 05/09/19 1048 [id number] Interpreted by: SOBIA GREGG MD Electronically signed by: Reviewed: Reviewed by Me Diagonstic Imaging: CT (with IV contrast) Plain Films/CT/US/NM/MRI: abdomen, pelvis Comments NAME: JUANITA PONCE [facility] REC#: [id number] PT STATUS: REG ER : 1985 PHYSICIAN: DEBO SCOTT MD ADMIT DATE: 05/09/19/ER Draft Date of Exam:05/09/19 CT ABDOMEN/PELVIS W PROCEDURE: CT abdomen and pelvis with contrast. TECHNIQUE: Multiple contiguous axial images were obtained through the abdomen and pelvis after administration of intravenous contrast. Auto Exposure Controls were utilized during the CT exam to meet ALARA standards for radiation dose reduction. INDICATION: Severe abdominal pain. COMPARISON: No prior studies are available for comparison. FINDINGS: The lung bases are clear. The liver is unremarkable. There is some prominence to the intrahepatic and extra hepatic bile ducts. There appears to be a stone within the gallbladder. No definite radiopaque common duct stone is seen. Pancreas is unremarkable. Spleen is unremarkable. No adrenal mass is detected. No definite renal calculi or hydronephrosis is identified. Aorta is non-aneurysmal. Small and large bowel loops are normal caliber. No obstruction is seen. There is a fat-containing umbilical hernia. No herniated bowel loops are identified. No free fluid or loculated fluid collection is seen. The uterus and ovaries are unremarkable. Partially filled urinary bladder is unremarkable. IMPRESSION: There is intrahepatic and extra hepatic biliary ductal dilatation as well as cholelithiasis. Common duct stone is not visualized but cannot be entirely excluded. Gallbladder ultrasound may be useful for further evaluation. Correlation with liver enzymes is recommended as well. No other significant abnormality in the abdomen or pelvis is detected. Dictated on workstation # [id number] Dict: 05/09/19 1105 Trans: 05/09/19 1110 [facility] [id number] Interpreted by: SOBIA GREGG MD Electronically signed by: Reviewed: Reviewed by Me Consults : Consulting Physician: LINDA RUBIN DO Consults Notes Left voicemail [phone]. [phone]: Discussed the case and the patient is comfortable not requiring any further pain medicines at this time. He says probably proceed to take out the gallbladder do a cholangiogram intraoperatively and if the obstruction is noted then sent her for ERCP. He says he will come down and examine the patient h imself. Departure Communication (Admissions) Time/Spoke to Admitting Phy: 13:28 Dr. Rubin saw the patient and they decided to go to same day surgery today have the surgery and send her home probably later tonight. Plan is to put her on after his clinic concludes. Impression Primary Impression: Choledocholithiasis with obstruction Qualified Codes: K80.51 - Calculus of bile duct without cholangitis or cholecystitis with obstruction Disposition: ADMITTED INPATIENT Condition: Stable Admissions Decision to Admit Reason: Admit from ER (General) Decision to Admit/Date: May 09, 2019 Time/Decision to Admit Time: 13:29 Departure-Patient Inst. Referrals: DON CAGE MD (PCP/Family) Primary Care Physician Copy Copies To 1: DON CAGE MD, TITUS J May 09, 2019 09:41
[2019-05-09 09:43] LABS: BASOPHILS % (AUTO) 0 % (0-10); EOSINOPHILS # (AUTO) 0.3 10^3/uL (0.0-0.3); EOSINOPHILS % (AUTO) 2 % (0-10); HEMATOCRIT 45 % (35-52); HEMOGLOBIN 14.8 G/DL (11.5-16.0); LYMPHOCYTES # (AUTO) 2.2 X 10^3 (1.0-4.0); LYMPHOCYTES % (AUTO) 20 % (12-44); MEAN CORPUSCULAR HEMOGLOBIN 28 PG (25-34); MEAN CORPUSCULAR HGB CONC 33 G/DL (32-36); MEAN CORPUSCULAR VOLUME 86 FL (80-99); MEAN PLATELET VOLUME 10.7 FL (7.4-10.4); MONOCYTES # (AUTO) 0.6 X 10^3 (0.0-1.0); MONOCYTES % (AUTO) 5 % (0-12); NEUTROPHILS # (AUTO) 8.1 X 10^3 (1.8-7.8); NEUTROPHILS % (AUTO) 73 % (42-75); PLATELET COUNT 268 10^3/uL (130-400); RED CELL DISTRIBUTION WIDTH 13.6 % (10.0-14.5); WHITE BLOOD COUNT 11.1 10^3/uL (4.3-11.0)
[2019-05-09] MEDS ORDERED: ONDANSETRON 4 MG/2 ML (SDV) Z0FRAN IVP ONE (09:45)
[2019-05-09] MEDS ORDERED: fentaNYL INJECTION 100 MCG/2 ML AMP IVP ONE (09:45)
[2019-05-09 09:48] LABS: BILIRUBIN,URINE 1+ (NEGATIVE); WBC,URINE 0-2 /HPF
[2019-05-09 09:49] LABS: BACTERIA,URINE TRACE /HPF
[2019-05-09 10:04] LABS: ALANINE AMINOTRANSFERASE 197 U/L (0-55); ALBUMIN 4.1 GM/DL (3.2-4.5); ALKALINE PHOSPHATASE 211 U/L (40-136); BILIRUBIN,TOTAL 1.7 MG/DL (0.1-1.0); BUN/CREATININE RATIO 11; CALCIUM 9.1 MG/DL (8.5-10.1); CARBON DIOXIDE 24 MMOL/L (21-32); CHLORIDE 105 MMOL/L (98-107); CREATININE SERUM 0.82 MG/DL (0.60-1.30); GFR ESTIMATED > 60; GLUCOSE 128 MG/DL (70-105); LIPASE 33 U/L (8-78); POTASSIUM 3.4 MMOL/L (3.6-5.0); SODIUM 143 MMOL/L (135-145); TOTAL PROTEIN 7.2 GM/DL (6.4-8.2)
[2019-05-09] MEDS ORDERED: IOHEXOL 350 MG/ML 100 ML (OMNIPAQUE 350) VIAL IV ONE (10:30)
[2019-05-09] MEDS ORDERED: NS 100 ML (IVPB) BAG IV ONE (10:30)
[2019-05-09] MEDS ORDERED: CATHETER FLUSH 10 ML SYR IV PRN (10:30)
[2019-05-09] MEDS ORDERED: HOLD METFORMIN - RECEIVED CONTRAST 20 ML VIAL IV SCH (10:30)
--- NOTE | 2019-05-09 10:48 | Diagnostic Imaging Report ---
INDICATION: Abdominal pain and chest tightness. TIME OF EXAM: 10:32 AM No prior studies are available for comparison. FINDINGS: The heart size is normal. The pulmonary vascularity is unremarkable. The lungs are clear. No infiltrate, effusion or pneumothorax is detected. IMPRESSION: No acute cardiopulmonary process is detected. Dictated by: Dictated on workstation # [id number]
--- NOTE | 2019-05-09 11:11 | Diagnostic Imaging Report ---
PROCEDURE: CT abdomen and pelvis with contrast. TECHNIQUE: Multiple contiguous axial images were obtained through the abdomen and pelvis after administration of intravenous contrast. Auto Exposure Controls were utilized during the CT exam to meet ALARA standards for radiation dose reduction. INDICATION: Severe abdominal pain. COMPARISON: No prior studies are available for comparison. FINDINGS: The lung bases are clear. The liver is unremarkable. There is some prominence to the intrahepatic and extra hepatic bile ducts. There appears to be a stone within the gallbladder. No definite radiopaque common duct stone is seen. Pancreas is unremarkable. Spleen is unremarkable. No adrenal mass is detected. No definite renal calculi or hydronephrosis is identified. Aorta is non-aneurysmal. Small and large bowel loops are normal caliber. No obstruction is seen. There is a fat-containing umbilical hernia. No herniated bowel loops are identified. No free fluid or loculated fluid collection is seen. The uterus and ovaries are unremarkable. Partially filled urinary bladder is unremarkable. IMPRESSION: There is intrahepatic and extra hepatic biliary ductal dilatation as well as cholelithiasis. Common duct stone is not visualized but cannot be entirely excluded. Gallbladder ultrasound may be useful for further evaluation. Correlation with liver enzymes is recommended as well. No other significant abnormality in the abdomen or pelvis is detected. Dictated by: Dictated on workstation # [id number]
--- NOTE | 2019-05-09 13:00 | NUR ---
Recieved report from OSMANI Lindo to assume care of pt @ this time.
--- NOTE | 2019-05-09 13:17 | NUR ---
Dr. Lilly in room with pt @ this time.
--- NOTE | 2019-05-09 13:45 | NUR ---
0910 BP 133/77 P 75 0930 BP 127/49 P 70 0945 BP 115/77 P68 1000 BP 131/85 P53 1015 BP 121/69 P51 1030 BP 117/64 P62 1115 BP 114/62 P56 1130 BP 118/72 P56 1145 BP 118/71 P55 1200 BP 114/68 P53 1215 BP 109/71 P55 1230 BP 107/61 P52 1245 BP 104/63 P48 1300 BP 98/57 P57 1340 BP 123/67 P55
--- NOTE | 2019-05-09 14:01 | History & Physical-Surgical ---
YOEL COLON,MED STUDENT 05/09/19 1401: History of Present Illness History of Present Illness Reason for visit/HPI Ms. Infante is a 33yo female who presented to the ED with c/o abdominal pain since Monday evening. She describes the pain as a constant achy pain that began abruptly and is radiating to her flanks and back. On Monday this pain was a 7/10, and progressed steadily to reach a 10/10 at presentation today. She vomited twice on Monday, and has vomited two or three more times since then, each time without blood. She reports diarrhea without blood on Monday that was pale/calderon in color, but has not had loose stools since. She also notes chest tightness and pain with inspiration only during episodes of severe pain. She took ibuprofen Monday which was only mildly helpful. Movement and regular activity worsens her pain. She denies experiencing pain like this before. Date of Admission 05/09/2019 Date Seen by a Provider: May 09, 2019 Time Seen by a Provider: 13:15 I consulted on this patient on 05/09/19 13:55 Attending Physician Linda Rubin DO Admitting Physician No,Local Physician Consult LINDA RUBIN DO Allergies and Home Medications Allergies Coded Allergies: No Known Drug Allergies (Unverified , 08/02/14) Home Medications Docusate Sodium 100 Mg Capsule, 100 MG PO BID PRN for CONSTIPATION-1ST LINE Prescribed by: FENG CORONA on 09/02/18 1040 Hydrocodone Bit/Acetaminophen 1 Tab Tab, 1 TAB PO Q4H PRN for PAIN-MODERATE Prescribed by: FENG CORONA on 09/02/18 1040 Ibuprofen 600 Mg Tablet, 600 MG PO Q6H Prescribed by: FENG CORONA on 09/02/18 1040 Past Geskaxx-Ycjssa-Pmvgvz Hx Patient Social History Alcohol Use: Denies Use Recreational Drug Use: No Smoking Status: Current Everyday Smoker Cigarettes Per Day: 4 Type Used: Cigarettes, Electronic/Vapor Recent Foreign Travel: No Contact w/Someone Who Travel: No Recent Infectious Disease Expo: No Recent Hopitalizations: No Immunizations Up To Date PED Vaccines UTD: No Date of Influenza Vaccine: Apr 01, 2018 Seasonal Allergies Seasonal Allergies: No Surgeries History of Surgeries: Yes Surgeries: Tonsillectomy Respiratory History of Respiratory Disorde: No Cardiovascular History of Cardiac Disorders: No Neurological History of Neurological Disord: No Reproductive System Hx Reproductive Disorders: No Genitourinary History of Genitourinary Disor: No Gastrointestinal History of Gastrointestinal Di: No Musculoskeletal History of Musculoskeletal Dis: No Endocrine History of Endocrine Disorders: No HEENT History of HEENT Disorders: No Cancer History of Cancer: No Psychosocial History of Psychiatric Problem: No Integumentary History of Skin or Integumenta: No Blood Transfusions History of Blood Disorders: No Adverse Reaction to a Blood Tr: No Family Medical History Family Medial History: Congenital heart disease 19 FATHER FH: breast cancer 19 MOTHER FH: obesity G8 BROTHER G8 BROTHER Review of Systems Constitutional: No chills; diaphoresis (During episodes of intense pain); No fever, No weight gain, No weight loss EENTM: No hearing loss, No ear pain, No blurred vision, No tearing, No vision loss, No nose congestion, No throat pain Respiratory: No cough, No hemoptysis, No stridor, No wheezing Cardiovascular: chest pain (During episodes of intense pain); No edema, No palp itations, No syncope Gastrointestinal: abdominal pain (RUQ), diarrhea (On Monday only, describes pale, calderon color); No hematemesis, No melena; nausea, vomiting Genitourinary: No dysuria, No frequency, No hesitancy Skin: No lesions, No lumps, No rash Psychiatric/Neurological: Denies Numbness, Denies Paresthesia, Denies Tingling Physical Exam Vital Signs Vital Signs - First Documented 05/09/19 09:10 Temp 36.4 Pulse 82 Resp 18 B/P (MAP) 133/77 (95) Pulse Ox 99 O2 Delivery Room Air Capillary Refill : Less Than 3 Seconds Height, Weight, BMI Height: 5'3.00" Weight: 266lbs. 0.0oz. [id number]; 29.00 BMI Method:Stated General Appearance: No Apparent Distress (Received pain medication in ED), WD/WN Eyes: Bilateral Eye PERRL HEENT: No Pale Conjunctivae (L), No Pale Conjunctivae (R), No Scleral Icterus (L), No Scleral Icterus (R) Neck: Non Tender, Supple; No Lymphadenopathy (L), No Lymphadenopathy (R), No Thyromegaly Respiratory: Lungs Clear, Normal Breath Sounds, No Accessory Muscle Use, No Respiratory Distress Cardiovascular: Regular Rate, Rhythm, No Murmur, Normal Peripheral Pulses Gastrointestinal: Normal Bowel Sounds, Soft; No Distended, No Guarding, No Splenomegaly Extremity: No Pedal Edema Neurologic/Psychiatric: Alert, Oriented x3, Normal Mood/Affect Skin: Normal Color, Warm/Dry Data Review Labs Laboratory Tests 05/09/19 09:17: Urine Color AMBERH, Urine Clarity CLEAR, Urine pH 6, Urine Specific [place] 1.015L, Urine Protein 2+H, Urine Glucose (UA) NEGATIVE, Urine Ketones NEGATIVE, Urine Nitrite NEGATIVE, Urine Bilirubin 1+H, Urine Urobilinogen 8H, Urine Leukocyte Esterase 1+H, Urine RBC (Auto) NEGATIVE, Urine RBC NONE, Urine WBC 0- 2, Urine Squamous Epithelial Cells 10-25H, Urine Crystals NONE, Urine Bacteria TRACE, Urine Casts NONE, Urine Mucus SMALLH, Urine Culture Indicated NO, Urine Test NEGATIVE 05/09/19 09:34: White Blood Count 11.1H, Red Blood Count 5.25, Hemoglobin 14.8, Hematocrit 45, Mean Corpuscular Volume 86, Mean Corpuscular Hemoglobin 28, Mean Corpuscular Hemoglobin Concent 33, Red Cell Distribution Width 13.6, Platelet Count 268, Mean Platelet Volume 10.7H, Neutrophils (%) (Auto) 73, Lymphocytes (%) (Auto) 20, Monocytes (%) (Auto) 5, Eosinophils (%) (Auto) 2, Basophils (%) (Auto) 0, Neutrophils # (Auto) 8.1H, Lymphocytes # (Auto) 2.2, Monocytes # (Auto) 0.6, Eosinophils # (Auto) 0.3, Basophils # (Auto) 0.0, Sodium Level 143, Potassium Level 3.4L, Chloride Level 105, Carbon Dioxide Level 24, Anion Gap 14, Blood Urea Nitrogen 9, Creatinine 0.82, Estimat Glomerular Filtration Rate > 60, BUN/Creatinine Ratio 11, Glucose Level 128H, Calcium Level 9.1, Corrected Calcium 9.0, Total Bilirubin 1.7H, Aspartate Amino Transf (AST/SGOT) 93H, Alanine Aminotransferase (ALT/SGPT) 197H, Alkaline Phosphatase 211H, Troponin I < 0.028, Total Protein 7.2, Albumin 4.1, Lipase 33 Assessment/Plan Assessment/Plan Admission Diagonsis Cholelithiasis Cholecystitis Choledocholithiasis Admission Status: Other (Same Day Surgery) Assessment/Plan Cholelithiasis Cholecystitis Choledocholithiasis IV fluids Admit to same day surgery for cholecystectomy LINDA RUBIN DO 05/09/19 1511: History of Present Illness History of Present Illness Reason for visit/HPI Pt seen and examined. States with the Fentanyl shot she got her pain is basi halima gone. Time Seen by a Provider: 13:15 Allergies and Home Medications Allergies Coded Allergies: No Known Drug Allergies (Unverified , 08/02/14) Home Medications Docusate Sodium 100 Mg Capsule, 100 MG PO BID PRN for CONSTIPATION-1ST LINE Prescribed by: FENG CORONA on 09/02/18 1040 Hydrocodone Bit/Acetaminophen 1 Tab Tab, 1 TAB PO Q4H PRN for PAIN-MODERATE Prescribed by: FENG CORONA on 09/02/18 1040 Ibuprofen 600 Mg Tablet, 600 MG PO Q6H Prescribed by: FENG CORONA on 09/02/18 1040 Patient Home Medication List Home Medication List Reviewed: Yes Past Izyjivf-Aslvxg-Lkjsyb Hx Family Medical History Significant Family History: Heart Disease (father), Cancer (breast - mother) Family Medial History: Congenital heart disease 19 FATHER FH: breast cancer 19 MOTHER FH: obesity G8 BROTHER G8 BROTHER Review of Systems Musculoskeletal: No back pain, No joint pain, No joint swelling, No muscle stiffness Psychiatric/Neurological: Denies Anxiety, Denies Depressed pt denies any hx of abnormal bleeding or bruising Physical Exam Eyes: Bilateral Eye EOMI Back: No CVA Tenderness, No Vertebral Tenderness Extremity: Non Tender, No Calf Tenderness Lymphatic: No Adenopathy (neck, axilla or groin) Assessment/Plan Assessment/Plan Admission Diagonsis Acute Cholelithias/Acute Cholecystitis with probably Choledochalithiasis Assessment/Plan Acute Cholelithias/Acute Cholecystitis with probably Choledochalithiasis Plan is npo, IV fluids, pain control, anti-emetics, IV ABX bellperson to OR. Will get consent for Laparoscopic Cholecystectomy with possible cholangiogram, possible open. Discussed procedure with pt including but not limited to pain, bleeding, infection, scar, damage to bowel or bile ducts and need for further procedure. She may also need ERCP depending on cholangiogram. I did give her the option of going home and trying to do all of this as an outpt; however, she has a very high chance of getting worse if she has a blocked bile duct. She spoke with family and wants to do it now. She ate at 730 am, so we have to wait until 330pm. Supervisory-Addendum Brief Verification & Attestation Participated in pt care: history, MDM, physical Personally performed: exam, history, MDM Care discussed with: Medical Student Procedures: n/a Verification and Attestation of Medical Student E/M Service A medical student performed and documented this service in my presence. I reviewed and verified all information documented by the medical student and made modifications to such information, when appropriate. I personally performed the physical exam and medical decision making. Linda Rubin, May 09, 2019,15:17 YOEL COLON,MED STUDENT May 09, 2019 14:01 LINDA RUBIN DO May 09, 2019 15:11
[2019-05-09] MEDS ORDERED: IOPAMIDOL 61% 30 ML (ISOVUE 300) VIAL IV ONE (14:09)
[2019-05-09] MEDS ORDERED: BUP/EPI 0.5% 1:200,000 (SENSORCAINE) 30 ML VIAL ONE (14:09)
[2019-05-09] MEDS ORDERED: LIDOCAINE PF 2% 5 ML (XYLOCAINE) VIAL ONE (14:11)
[2019-05-09] MEDS ORDERED: proPOfol 200 MG/20 ML (DIPRIVAN) VIAL IV ONE (14:11)
[2019-05-09] MEDS ORDERED: SUCCINYLCHOLINE INJ 100 MG/5 ML SYR ONE (14:11)
[2019-05-09] MEDS ORDERED: ROCURONIUM 10 MG/ML 5 ML SYRINGE IV ONE (14:11)
[2019-05-09] MEDS ORDERED: SEVOFLURANE (ULTANE) 15 ML INHAL SOLN ONE ×4 (14:11→16:56)
[2019-05-09] MEDS ORDERED: fentaNYL INJECTION 100 MCG/2 ML AMP ONE ×2 (14:12→17:20)
[2019-05-09] MEDS ORDERED: MIDAZOLAM 2 MG/2 ML (VERSED) VIAL ONE (14:12)
[2019-05-09] MEDS ORDERED: ceFAZolin 2 GM IV Premixed 50 ML ONE (16:01)
[2019-05-09] MEDS ORDERED: LACTATED RINGERS 1,000 ML IV PRN (16:06)
[2019-05-09] MEDS ORDERED: ceFAZolin 2 GM IV Premixed 50 ML IV ONE (16:15)
[2019-05-09] MEDS ORDERED: morphine INJ 10 MG/ML 1ML (SYR OR VIAL) ONE (16:20)
[2019-05-09] MEDS ORDERED: GLYCOPYRROLATE 0.2 MG/ML (ROBINUL) 2 ML VIAL ONE (16:56)
[2019-05-09] MEDS ORDERED: NEOSTIGMINE 3 MG/3 ML VIAL ONE (16:56)
[2019-05-09] MEDS ORDERED: DEXAMETHASONE 10 MG/ML (DECADRON) 1 ML VIAL ONE (16:57)
[2019-05-09] MEDS ORDERED: DESFLURANE (SUPRANE) 15 ML INHAL SOLN ONE (16:57)
[2019-05-09] MEDS ORDERED: ONDANSETRON 4 MG/2 ML (SDV) Z0FRAN ONE (16:57)
--- NOTE | 2019-05-09 17:17 | Diagnostic Imaging Report ---
Clinical indication: Patient for laparoscopic cholecystectomy in operating room. Exam: There is a total of 85 intraoperative fluoroscopic images of the right upper quadrant. Comparison: CT scan of the abdomen and pelvis performed with contrast dated 05/09/2019. Findings and impression: There is antegrade contrast injection into the cystic duct with filling of the common bile duct and spillage into the duodenum. There is also retrograde filling into the common hepatic duct and intrahepatic ducts. Please see surgeon's report for more detail. Fluoroscopy was provided for surgeons and a total of 15.6 seconds and 13.74 mGy was provided. Dictated by: Dictated on workstation # [id number]
--- NOTE | 2019-05-09 17:26 | Progress Note-Post Operative ---
Post-Operative Progess Note Surgeon (s)/Sane Rn (s) Surgeon LINDA RUBIN DO Sane Rn: CHON Hong Pre-Operative Diagnosis Acute sulma/sulma with choledochalithiasis Post-Operative Diagnosis same Incarcerated [facility] Procedure & Operative Findings Date of Procedure 05/09/19 Procedure Performed/Findings Lap sulma with IOC Anesthesia Type GET Estimated Blood Loss Estimated blood loss (mL): minimal Specimens/Packing Specimens Removed GB and contents LINDA RUBIN DO May 09, 2019 17:26
[2019-05-09] MEDS ORDERED: HYDROcodone/APAP 5 MG/325 MG (LORTAB) TAB PO PRN (17:30)
[2019-05-09] MEDS ORDERED: MEPERIDINE (DEMEROL) INJ 50 MG/ML IVP ONE (17:45)
[2019-05-09] MEDS ORDERED: morphine INJ 10 MG/ML 1ML (SYR OR VIAL) IVP ONE (17:45)
[2019-05-09] MEDS ORDERED: ONDANSETRON 4 MG/2 ML (SDV) Z0FRAN IVP PRN (17:45)
[2019-05-09] MEDS ORDERED: PROMETHAZINE INJ 25 MG/ML (PHENERGAN) AMP IVP ONE (17:45)
[2019-05-09] MEDS ORDERED: HYDROmorphone 2 MG/ML VIAL (DILAUDID) IV ONE (17:45)
--- NOTE | 2019-05-09 18:36 | NUR ---
REC'D PER BED FROM PAR. REPORT FROM MAYCOL KEEN. PT A/O, ABD STAB X3 D/I. DENIES PAIN.
--- NOTE | 2019-05-09 20:15 | Anesthesia-General Post-Op ---
General Patient Condition Mental Status/LOC: Same as Preop Cardiovascular: Satisfactory Nausea/Vomiting: Absent Respiratory: Satisfactory Pain: Controlled Complications: Absent Post Op Complications Complications None Follow Up Care/Instructions Patient Instructions None needed. Anesthesia/Patient Condition Patient Condition Patient is doing well, no complaints, stable vital signs, no apparent adverse anesthesia problems. No complications reported per nursing. DREAD BEAN CRNA May 09, 2019 20:15
--- NOTE | 2019-05-09 21:56 | OPERATIVE REPORT ---
DATE OF SERVICE: PREOPERATIVE DIAGNOSES: Acute cholecystitis, cholelithiasis, possible choledocholithiasis, incarcerated umbilical hernia. POSTOPERATIVE DIAGNOSES: Acute cholecystitis, cholelithiasis, possible choledocholithiasis with incarcerated umbilical hernia. PROCEDURES: Laparoscopic cholecystectomy, intraoperative cholangiogram. SURGEON: Martin Lilly DO. PRINT COLOR OPERATOR: HUI Hong. SPECIMEN: Gallbladder and contents. BLOOD LOSS: Minimal. FLUIDS: Per anesthesia. POSTOPERATIVE CONDITION: Stable. INDICATION FOR PROCEDURE: The patient is a 33-year-old female who had abdominal pain in right upper quadrant, elevated bilirubin and a CAT scan showed possible choledocholithiasis, definite stones in the gallbladder with dilated common bile duct. FINDINGS: The patient had what looked like acute gallbladder. She had adhesions to it. She had edema around it and then a cholangiogram showed what looked like a stone in the common bile duct. PROCEDURE NOTE: After informed consent was obtained, the patient was brought to the operating room, placed on the table in supine position. She was sterilely prepped and draped in normal fashion. Local lidocaine was used to infiltrate the skin above the umbilicus. I made the incision with #11 blade, carried down through the skin into subcutaneous tissue, then deepened down through subcutaneous tissue with Bovie electrocautery down to fascia. Fascia incised with Bovie electrocautery, bluntly entered the abdomen, swept the finger around, placed 0 Vicryl [id number] suture, placed 11 mm trocar port under direct visualization. Created pneumoperitoneum and then placed 3 more ports in normal fashion using local lidocaine, 11-blade for stab incision and Versed system, all done under direct visualization, one in subxiphoid and two in the right upper quadrant. The patient then placed slightly reverse Trendelenburg and rotated left and then able to visualize the gallbladder, grabbed at the fundus, looked like there was some erythema and some edema around it as well as some bile staining, able to take in superior direction and grasp down with Kira's pouch and pulled in inferolateral direction, started dissecting out cystic duct and the cystic artery, able to get around the cystic duct and placed one clip distally and then get around the cystic artery and placed one distally and one proximally. Cut the cystic duct intermediate through Metzenbaum scissors. Placed a cholangiogram catheter, shot a cholangiogram. Good spillage of dye down the cystic duct into the common bile duct and up into common hepatic and right and left hepatics and went down the common bile duct. It looked like there may have been like bubbles or possibly it may have been a stone and then on repeat one shot fluoroscopy, it looked like there was a lucency with a concavity down just before the opening to the small intestine. At this point, then removed the cholangiogram catheter, placed 2 clips proximally on the cystic duct and then cut the cystic duct and cystic artery with Metzenbaum scissors, then removed the gallbladder from the bed of liver with L-hook cautery, some bleeding from the posterior branch, this was controlled with Bovie electrocautery. I continued to take the gallbladder off the bed of liver until it was completely removed, placed a bag in the abdomen, placed the gallbladder in the bag and then removed this through supraumbilical incision. Placed the port back in the abdomen, copiously irrigated with normal saline. Hemostasis obtained in the bed of liver with Bovie electrocautery. No bleeding at the end of the case, took a picture of the incarcerated umbilical hernia. The patient was then placed supine. Suctioned out all fluid and suctioned out the pneumoperitoneum as well as allowed it to escape, removed all ports under direct visualization and then closed the supraumbilical incision, closing the fascia with 0 Vicryl suture previously placed. Copiously irrigated all incisions with normal saline, closing 3 small 5 mm incisions with single interrupted 4-0 undyed Monocryl subcuticular stitch. Closed the supraumbilical incision with 3 interrupted 4-0 undyed Monocryl subcuticular stitches. The area was cleaned and dried. Dermabond placed as well as Band-Aids. The patient tolerated the procedure. Sponge, instrument and needle count correct at the end of the case. Job ID: [id number] DocumentID: [id number] Dictated Date: 05/09/2019 17:24:10 Staffing Account Manager Date: 05/09/2019 21:55:58 Dictated By: DO MAGDALENE GAUTAM
[2019-05-10] VITALS: BP 109/57
[2019-05-10] MEDS: LACTATED RINGERS 1,000 ML IV SCH ×2 (01:26→01:50)
[2019-05-10 04:00] VITALS: BP 95/51
[2019-05-10 05:19] VITALS: BP 108/72
[2019-05-10 05:49] LABS: ALANINE AMINOTRANSFERASE 197 U/L (0-55); ALBUMIN 3.6 GM/DL (3.2-4.5); ALKALINE PHOSPHATASE 218 U/L (40-136); AMYLASE 41 U/L (25-125); BILIRUBIN,TOTAL 1.2 MG/DL (0.1-1.0); BUN/CREATININE RATIO 10; CALCIUM 8.8 MG/DL (8.5-10.1); CARBON DIOXIDE 25 MMOL/L (21-32); CHLORIDE 105 MMOL/L (98-107); CREATININE SERUM 0.79 MG/DL (0.60-1.30); GFR ESTIMATED > 60; GLUCOSE 133 MG/DL (70-105); LIPASE 21 U/L (8-78); POTASSIUM 4.3 MMOL/L (3.6-5.0); SODIUM 139 MMOL/L (135-145); TOTAL PROTEIN 6.2 GM/DL (6.4-8.2)
--- NOTE | 2019-05-10 10:23 | NUR ---
NOTE THAT PT VOICED SHE HAD HER FLU VACCINE ON Apr -- AND THAT SHE IS TO DISCHARGED HOME TODAY
--- NOTE | 2019-05-10 10:28 | Progress Note - Surgery ---
[facility] 05/10/19 1028: Subjective Date Seen by a Provider: May 10, 2019 Time Seen by a Provider: 09:25 Subjective/Events-last exam Patient is doing much better. States that she is ready to go home and does not complain of any pain. Answered all of patients questions. Bilirubin is now 1.2. Amylase and lipase are WNL. Review of Systems General: No Chills, No Other (fevers) Cardiovascular: No: Chest Pain Gastrointestinal: No: Nausea, Vomiting, Abdominal Pain Musculoskeletal: shoulder pain (from CO2) Objective Exam Vital Signs Date Time Temp Pulse Resp B/P (MAP) Pulse Ox O2 Delivery O2 Flow Rate FiO2 05/10/19 05:19 50 108/72 (84) 05/10/19 04:00 36.8 48 18 95/51 (66) 98 Room Air 05/10/19 00:15 Room Air 05/10/19 00:07 Room Air 05/10/19 00:00 36.8 56 18 109/57 (74) 97 Room Air 05/09/19 20:10 36.4 59 18 102/64 (77) 99 Room Air 05/09/19 18:44 36.8 54 20 119/57 100 Room Air 05/09/19 18:36 Room Air 05/09/19 18:30 Room Air 05/09/19 18:30 36.5 16 114/59 (77) 97 Room Air 05/09/19 18:20 16 108/52 (70) 100 Room Air 05/09/19 18:15 OxyMask 3 05/09/19 18:10 16 117/55 (75) 100 OxyMask 3 05/09/19 18:00 OxyMask 5 05/09/19 18:00 16 123/57 (79) 98 OxyMask 5 05/09/19 17:50 OxyMask 5 05/09/19 17:45 16 110/59 (76) 99 OxyMask 5 05/09/19 17:38 OxyMask 5 05/09/19 17:38 37.7 18 114/54 (74) 100 OxyMask 5 05/09/19 13:50 36.5 69 16 114/66 (82) 98 Room Air 05/09/19 13:45 37.1 55 17 123/67 (95) 99 Room Air I & O 05/10/19 07:00 Intake Total 1170 ml Output Total 300 ml Balance 870 ml Capillary Refill : Less Than 3 Seconds General Appearance: No Apparent Distress, WD/WN HEENT: No Pale Conjunctivae (L), No Pale Conjunctivae (R), No Scleral Icterus (L), No Scleral Icterus (R) Neck: No Lymphadenopathy (L), No Lymphadenopathy (R), No Thyromegaly Respiratory: No Accessory Muscle Use, No Respiratory Distress Neurologic/Psychiatric: Alert, Oriented x3, Normal Mood/Affect Skin: Normal Color, Warm/Dry Other comments Patient was ambulating around room without difficulty. Results Lab Laboratory Tests 05/10/19 04:15: Sodium Level 139, Potassium Level 4.3, Chloride Level 105, Carbon Dioxide Level 25, Anion Gap 9, Blood Urea Nitrogen 8, Creatinine 0.79, Estimat Glomerular Filtration Rate > 60, BUN/Creatinine Ratio 10, Glucose Level 133H, Calcium Level 8.8, Corrected Calcium 9.1, Total Bilirubin 1.2H, Aspartate Amino Transf (AST/SGOT) 109H, Alanine Aminotransferase (ALT/SGPT) 197H, Alkaline Phosphatase 218H, Total Protein 6.2L, Albumin 3.6, Amylase Level 41, Lipase 21 Assessment/Plan Assessment/Plan Assessment/Plan S/P Cholecystectomy Follow up with Dr. Lilly next week. Make an appointment with his office No heavy lifting. Do not lift anything over 30 pounds. Avoid fried foods. MARTIN LILLY DO 05/13/19 1741: Supervisory-Addendum Brief Verification & Attestation Participated in pt care: history, MDM, physical Personally performed: exam, history, MDM Care discussed with: Medical Student Procedures: n/a Verification and Attestation of Medical Student E/M Service A medical student performed and documented this service in my presence. I reviewed and verified all information documented by the medical student and made modifications to such information, when appropriate. I personally performed the physical exam and medical decision making. Martin Lilly, May 13, 2019,17:41 [facility] May 10, 2019 10:28 MARTIN VICENTE DO May 13, 2019 17:41 POS
--- NOTE | 2019-05-10 11:03 | Discharge Inst-Surgical ---
Discharge Inst-Surgical Reconcile Patient Problems Problems Reviewed?: Yes Depart Medication/Instructions New, Converted or Re-Newed RX: Other (none needed, take home meds) Patient Instructions Follow up Appt: Make appointment for 1 week. [phone] Instructions: No lifting greater than 20 pounds. No strenuous activity. May shower in 24 hours, no tub bath or soaking. Use incentive spirometer at home as directed. No Smoking Skin/Wound Care: May remove bandages in am. You need to leave the Dermabond on incision it will fall off on it's own. Symptoms to Report: Appetite Changes, Extremity Discoloration, Numbness/Tingling, Swelling Increased, Bleeding Excessive, Eyesight Changes, Pain Increased, Urine Color Change, Constipation(Persistent), Fever over 101 degree F, Pain/Pressure in chest, Urinating Difficulty, Cough Up/Vomit Blood, Heart Beat Irreg/Pounding, Pain/Pressure in jaw, Cramps in feet or legs, Lightheadedness, Pain/Pressure in shoulder, Diarrhea(Persistent), Memory Changes Suddenly, Questions/Concerns, Weight gain consecutive days, Dizziness/Fainting, Nausea/Vomiting, Shortness of Breath, Weight gain over 2 pounds If questions or concerns contact your physician Or seek help at emergency department. Activity Activity as Tolerated: Yes Activity Instructions: Avoid Stress to Incision Driving Instructions: No Driving/Refer to Dr. Vincent Driving When on Pain Meds: Yes Incentive Spirometry: Every 2 Hours While Awake, For 2 weeks Avoid ALL Tobacco Products: Smoking of Any Kind Diet Discharge Diet: Low Fat/Low Cholesterol Diet for 24 Hours: No [place] Foods If Any Problems/Questions/Issu: Contact Your Physician, Go to Emergency Room, Go to Quick Care Skin/Wound Care Infection Signs and Symptoms: Increased Redness, Foul Odor of Wound, Increased Drainage, Skin Itchy or Has a Rash, Increased Swelling, Temperature Above 101 F Bathing Instructions: Shower Operative Area Clean and Dry: Keep Incision Clean/Dry Stitches/Nicole/Dermabond Dis: LINDA Metcalf DO May 10, 2019 11:03
--- NOTE | 2019-05-10 11:18 | Progress Note - Surgery ---
Subjective Date Seen by a Provider: May 10, 2019 Time Seen by a Provider: 09:48 Subjective/Events-last exam Patient is feeling better today, sitting up in chair. Her only complaint is some mild right shoulder and neck pain due to surgery. She is requesting to go home. Denies nausea, vomiting, or diarrhea. Objective Exam Vital Signs Date Time Temp Pulse Resp B/P (MAP) Pulse Ox O2 Delivery O2 Flow Rate FiO2 05/10/19 05:19 50 108/72 (84) 05/10/19 04:00 36.8 48 18 95/51 (66) 98 Room Air 05/10/19 00:15 Room Air 05/10/19 00:07 Room Air 05/10/19 00:00 36.8 56 18 109/57 (74) 97 Room Air 05/09/19 20:10 36.4 59 18 102/64 (77) 99 Room Air 05/09/19 18:44 36.8 54 20 119/57 100 Room Air 05/09/19 18:36 Room Air 05/09/19 18:30 Room Air 05/09/19 18:30 36.5 16 114/59 (77) 97 Room Air 05/09/19 18:20 16 108/52 (70) 100 Room Air 05/09/19 18:15 OxyMask 3 05/09/19 18:10 16 117/55 (75) 100 OxyMask 3 05/09/19 18:00 OxyMask 5 05/09/19 18:00 16 123/57 (79) 98 OxyMask 5 05/09/19 17:50 OxyMask 5 05/09/19 17:45 16 110/59 (76) 99 OxyMask 5 05/09/19 17:38 OxyMask 5 05/09/19 17:38 37.7 18 114/54 (74) 100 OxyMask 5 05/09/19 13:50 36.5 69 16 114/66 (82) 98 Room Air 05/09/19 13:45 37.1 55 17 123/67 (95) 99 Room Air I & O 05/10/19 07:00 Intake Total 1170 ml Output Total 300 ml Balance 870 ml Capillary Refill : Less Than 3 Seconds General Appearance: No Apparent Distress, WD/WN Respiratory: No Accessory Muscle Use, No Respiratory Distress Gastrointestinal: non tender, soft; No distended, No guarding Neurologic/Psychiatric: Alert, Normal Mood/Affect Skin: Normal Color, Warm/Dry Results Lab Laboratory Tests 05/10/19 04:15: Sodium Level 139, Potassium Level 4.3, Chloride Level 105, Carbon Dioxide Level 25, Anion Gap 9, Blood Urea Nitrogen 8, Creatinine 0.79, Estimat Glomerular Filtration Rate > 60, BUN/Creatinine Ratio 10, Glucose Level 133H, Calcium Level 8.8, Corrected Calcium 9.1, Total Bilirubin 1.2H, Aspartate Amino Transf (AST/SGOT) 109H, Alanine Aminotransferase (ALT/SGPT) 197H, Alkaline Phosphatase 218H, Total Protein 6.2L, Albumin 3.6, Amylase Level 41, Lipase 21 Assessment/Plan Assessment/Plan Assessment/Plan S/P Cholecystectomy Choledocolithiasis Liver enzymes still mildly elevated but no elevation in lipase or amylase. Bilirubin also improving. Pain is well controlled and she is wanting to go home Plan is for discharge with outpatient GI follow-up for ERCP Follow up with me in the office next week LINDA RUBIN DO May 10, 2019 11:18
[2019-05-10 11:50] VITALS: BP 108/72
== END 2019-05-10 11:50 | disposition home or self-care (01) ==
LOC: EDUNIT# 09:04 → ER 09:05 → SDC 13:26 → 4TH 18:40 → SDC 05-10 11:50
PROVIDERS: ATTEND Surgery
DX: K80.10 Calculus of gallbladder with chronic cholecystitis without obstruction (principal); K42.0 Umbilical hernia with obstruction, without gangrene; K21.0 Gastro-esophageal reflux disease with esophagitis; E66.01 Morbid (severe) obesity due to excess calories; F17.210 Nicotine dependence, cigarettes, uncomplicated; F17.290 Nicotine dependence, other tobacco product, uncomplicated; Z79.891 Long term (current) use of opiate analgesic; Z79.899 Other long term (current) drug therapy; Z68.41 Body mass index [BMI] 40.0-44.9, adult; Z82.49 Family history of ischemic heart disease and other diseases of the circulatory system; Z80.49 Family history of malignant neoplasm of other genital organs
CPT/HCPCS: 36415; 71045; 74177; 80053; 81000; 82150; 83690; 84484; 84703; 85025; 87081; 88304; 93005; 94664; 96361; 96374; 96375

== ENCOUNTER → 2022-03-10 | Outpatient (CLI) | payer OTHER ==
--- NOTE | 2022-03-10 10:22 | Diagnostic Imaging Report ---
Indication: Routine screening. No prior mammograms are available for comparison. This is a baseline study. 2-D and 3-D bilateral screening mammography was performed with CAD. Scattered fibroglandular densities are identified bilaterally. No mass or malignant-appearing microcalcifications are seen. Axillae are unremarkable. IMPRESSION: BI-RADS Category 1. No mammographic features suspicious for malignancy are identified. ACR BI-RADS Category 1: Negative. Result letter will be mailed to the patient. Note: At least 10% of breast cancer is not imaged by mammography. Dictated by: Dictated on workstation # [id number]
== END ==
LOC: RAD 08:05
PROVIDERS: ATTEND Obstetrics & Gynecology
DX: Z12.31 Encounter for screening mammogram for malignant neoplasm of breast (principal); Z80.3 Family history of malignant neoplasm of breast
CPT/HCPCS: 77063; 77067

== ENCOUNTER → 2023-05-22 | Outpatient (CLI) | payer OTHER ==
--- NOTE | 2023-05-22 10:16 | Diagnostic Imaging Report ---
INDICATION: Routine screening. COMPARISON: 03/10/2022. TECHNIQUE: 2D and 3D bilateral screening mammography was performed with CAD. FINDINGS: Scattered fibroglandular densities are identified bilaterally. The parenchymal pattern is stable. No mass or malignant-appearing microcalcifications are identified. The axillae are unremarkable. IMPRESSION: No mammographic features suspicious for malignancy are identified. ACR BI-RADS Category 1: Negative. Result letter will be mailed to the patient. Note: At least 10% of breast cancer is not imaged by mammography. Dictated by: Dictated on workstation # [id number]
== END ==
LOC: RAD 09:30
PROVIDERS: ATTEND Nurse Practitioner Women's Health
DX: Z12.31 Encounter for screening mammogram for malignant neoplasm of breast (principal); Z80.3 Family history of malignant neoplasm of breast
CPT/HCPCS: 77063; 77067